=== PATIENT | female | born 1965 | race Two or more races ===

== ENCOUNTER 2024-03-01 09:29 | Outpatient (CLI) | payer OTHER | END 2024-03-01 09:43 | disposition home or self-care (01) | LOC: RAD 09:29 | PROVIDERS: ATTEND Orthopaedic Surgery | DX: S52.531A Colles' fracture of right radius, initial encounter for closed fracture (principal) ==

== ENCOUNTER 2024-03-15 12:37 | Outpatient (CLI) | payer OTHER | END 2024-03-15 12:44 | disposition home or self-care (01) | LOC: RAD 12:37 | PROVIDERS: ATTEND Orthopaedic Surgery | DX: S52.531A Colles' fracture of right radius, initial encounter for closed fracture (principal) ==

== ENCOUNTER 2024-03-29 11:55 | Outpatient (CLI) | payer OTHER | END 2024-03-29 12:05 | disposition home or self-care (01) | LOC: RAD 11:55 | PROVIDERS: ATTEND Orthopaedic Surgery | DX: S52.531A Colles' fracture of right radius, initial encounter for closed fracture (principal) ==